=== PATIENT | male | born 1995 | race Caucasian/White ===

== ENCOUNTER 2017-07-14 17:04 | Emergency (ER) | payer MEDICAID, OTHER ==
[2017-07-14] MEDS ORDERED: Lidocaine 1% 20 ML MDV INFILT ONE (17:05)
[2017-07-14] MEDS ORDERED: Diphtheria,Pertussis(Acell),Tetanus Vaccine 0.5 ML SDV IM ONE (19:28)
[2017-07-15 06:46] VITALS: BP 134/72
--- NOTE | 2017-07-15 07:19 | ER ---
DATE SEEN: 07/14/2017 REASON FOR VISIT: Laceration. HISTORY OF PRESENT ILLNESS: This is a 22-year-old with a laceration to the right index finger that happened at home. He does not remember his last tetanus. PHYSICAL EXAMINATION: GENERAL: Not in distress. VITAL SIGNS: Normal. EXTREMITIES: Right index revealed a 4-cm sized laceration on the medial aspect that extended to the pulp. IMPRESSION: Laceration, simple. PLAN: I performed a digital block with lidocaine, and then stitched it with 4-0 Prolene, five stitches. There were no complications. I updated his tetanus and discharged him home to follow up in 1 week. TIME: 1900 hours. /[id number] ANGE/JOYA
== END 2017-07-14 19:47 | disposition home or self-care (01) ==
LOC: FB.ED 17:04
DX: S61.210A Laceration without foreign body of right index finger without damage to nail, initial encounter (principal); Z23 Encounter for immunization; W26.0XXA Contact with knife, initial encounter; Y92.009 Unspecified place in unspecified non-institutional (private) residence as the place of occurrence of the external cause
CPT/HCPCS: 12002; 90471; 90715; 99282; A4217; 12011